=== PATIENT | female | born 1975 | race Two or more races ===

== ENCOUNTER → 2021-03-28 23:55 | Outpatient (CLI) | payer OTHER | END | disposition home or self-care (01) | LOC: PPH VACUNA 23:55 | DX: Z23 Encounter for immunization (principal) ==

== ENCOUNTER 2022-08-24 11:00 | Emergency (ER) | payer OTHER ==
[~2022-08-24] VITALS: Ht 157.5 cm; Wt 102.1 kg
[2022-08-24] MEDS ORDERED: ZESTRIL10 M1 (12:12)
[2022-08-24] MEDS ORDERED: NASAL MIST126 ML (12:12)
[2022-08-24] MEDS ORDERED: ECOTRIN81 MG (12:12)
== END 2022-08-24 21:22 | disposition home or self-care (01) ==
LOC: ER 11:00
DX: R10.2 Pelvic and perineal pain (principal); D25.9 Leiomyoma of uterus, unspecified; N83.202 Unspecified ovarian cyst, left side; N83.201 Unspecified ovarian cyst, right side

== ENCOUNTER 2023-11-17 06:00 | Day surgery (SDC) | payer OTHER ==
[~2023-11-17 06:00] MED LIST: ECOTRIN81 MG; NASAL MIST126 ML; ZESTRIL10 M1
== END 2023-11-17 11:05 | disposition home or self-care (01) ==
LOC: AMB-ENDOS 06:00
PROVIDERS: ATTEND Colon & Rectal Surgery
DX: K63.5 Polyp of colon (principal); K62.1 Rectal polyp; D50.9 Iron deficiency anemia, unspecified